=== PATIENT | female | born 1965 | race African-American/Black ===

== ENCOUNTER 2019-06-10 10:48 | Emergency (ER) | payer OTHER ==
[~2019-06-10] VITALS: Ht 172.7 cm; Wt 105.0 kg
[2019-06-10] MEDS ORDERED: SERT50TA PO (11:02)
[2019-06-10] MEDS ORDERED: HYDR12.54 PO (11:02)
[2019-06-10] MEDS ORDERED: AMLODIPINE (11:02)
[2019-06-10] MEDS ORDERED: KETOROLAC 60MG/2ML VIAL IM ONE (12:00)
[2019-06-10 15:16] VITALS: BP 134/82
== END 2019-06-10 13:40 | disposition home or self-care (01) ==
LOC: ER 10:48
DX: S93.401A Sprain of unspecified ligament of right ankle, initial encounter (principal); S40.011A Contusion of right shoulder, initial encounter; M62.830 Muscle spasm of back; W10.9XXA Fall (on) (from) unspecified stairs and steps, initial encounter; Y93.89 Activity, other specified; Y92.89 Other specified places as the place of occurrence of the external cause
CPT/HCPCS: 73030; 73610; 96372; 99283; J1885

== ENCOUNTER 2019-08-27 01:05 | Emergency (ER) | payer OTHER ==
[~2019-08-27] VITALS: Ht 172.7 cm; Wt 101.0 kg
[~2019-08-27 01:05] MED LIST: AMLODIPINE; HYDR12.54 PO; SERT50TA PO
[2019-08-27 05:24] VITALS: BP 125/84
== END 2019-08-27 05:29 | disposition home or self-care (01) ==
LOC: ER 01:05
DX: B37.3 Candidiasis of vulva and vagina (principal); N39.0 Urinary tract infection, site not specified; B37.9 Candidiasis, unspecified; J45.909 Unspecified asthma, uncomplicated; Z88.6 Allergy status to analgesic agent; Z79.899 Other long term (current) drug therapy
CPT/HCPCS: 99283